=== PATIENT | female | born 1935 | race Caucasian/White ===

== ENCOUNTER 2016-05-30 08:24 | Outpatient (CLI) | payer MEDICARE, BC | END 2016-05-30 08:25 | disposition home or self-care (01) | DX: Z79.899 Other long term (current) drug therapy (principal); E03.9 Hypothyroidism, unspecified ==

== ENCOUNTER 2017-10-24 08:00 | Outpatient (CLI) | payer MEDICARE, BC | END 2017-10-24 08:01 | disposition home or self-care (01) | LOC: LAB.F 08:00 | PROVIDERS: ATTEND Physician Assistant Medical | DX: E03.9 Hypothyroidism, unspecified (principal) | CPT/HCPCS: 36415; 84443 ==

== ENCOUNTER 2018-03-27 09:13 | Outpatient (CLI) | payer MEDICARE, BC ==
[2018-03-27 17:58] LABS: BASOPHILS # (AUTO) 0.1 10^3/uL (0.0-0.1); BASOPHILS % (AUTO) 0.8 %; EOSINOPHILS # (AUTO) 0.2 10^3/uL (0.0-0.7); EOSINOPHILS % (AUTO) 2.6 %; LYMPHOCYTES # (AUTO) 2.2 10^3/uL (1.5-3.5); LYMPHOCYTES % (AUTO) 31.7 %; MEAN CORPUSCULAR HEMOGLOBIN 31.5 pg (27.0-31.0); MEAN CORPUSCULAR HGB CONC 32.4 g/dL (32.0-36.0); MEAN CORPUSCULAR VOLUME 97.2 fL (81.0-99.0); MEAN PLATELET VOLUME 8.4 fL (7.9-10.8); MONOCYTES # (AUTO) 0.5 10^3/uL (0.0-1.0); MONOCYTES % (AUTO) 6.5 %; NEUTROPHILS # (AUTO) 4.1 10^3/uL (1.5-6.6); NEUTROPHILS % (AUTO) 58.4 %; PLT - PLATELET COUNT 345 10^3/uL (130-450); RED BLOOD COUNT 4.44 10^6/uL (4.20-5.40); RED CELL DISTRIBUTION WIDTH 14.5 % (12.0-15.0)
[2018-03-27 18:12] LABS: ALBUMIN 3.8 g/dL (3.2-5.5); ALBUMIN/GLOBULIN RATIO 1.2 (1.0-2.2); BILIRUBIN,TOTAL 0.7 mg/dL (0.2-1.0); CALCIUM 9.4 mg/dL (8.5-10.3); CREATININE 0.5 mg/dL (0.4-1.0); TOTAL PROTEIN 7.1 g/dL (6.7-8.2)
== END 2018-03-27 09:14 | disposition home or self-care (01) ==
LOC: LAB.F 09:13
PROVIDERS: ATTEND Physician Assistant Medical
DX: E03.9 Hypothyroidism, unspecified (principal); Z51.81 Encounter for therapeutic drug level monitoring
CPT/HCPCS: 36415; 80053; 84443; 85025

== ENCOUNTER 2018-08-10 14:35 | Outpatient (CLI) | payer MEDICARE, BC ==
--- NOTE | 2018-08-14 11:05 | DEXA Report ---
Reason: POSTMENOPAUSAL STATUS, SCREENING FOR OSTEOPOROSIS Procedure Date: 08/10/2018 Accession Number: [id number] / [id number] Procedure: DEX - Dexa Spine and/or Hip CPT Code: FULL RESULT: EXAM: Dexa Spine and/or Hip DATE: 08/10/2018 3:23 PM CLINICAL HISTORY: POSTMENOPAUSAL STATUS, SCREENING FOR OSTEOPOROSIS. History of osteopenia and osteoporosis TECHNIQUE: Dual energy x-ray absorptiometry (DXA) was performed on a [employer]. Regions measured are the AP Spine, femoral neck, and if needed forearm. COMPARISON: 08/22/2014 and 01/12/2010 In accordance with the International Society for Clinical Densitometry (ISCD) guidelines, data from previous exams may be reanalyzed using current recommendations and techniques. This is done to allow a more accurate basis for comparison with the current study. FINDINGS: The data for the lumbar spine is as follows: BMD (g/cm/cm) T-SCORE Z-SCORE REGION L1 0.890 -2.0 -0.5 L2 0.964 -2.0 -0.4 L3 0.959 -2.0 -0.5 L4 1.141 -0.5 1.1 TOTAL 0.995 -1.5 0.0 NOTE: All evaluable vertebrae are used for classification The data for the hip is as follows: BMD (g/cm/cm) T-SCORE Z-SCORE REGION Neck 0.612 -3.1 -1.0 TOTAL 0.638 -2.9 -1.0 NOTE: The femoral neck or total proximal femur, whichever is lowest, is used for classification. IMPRESSION: THE WHO CLASSIFICATION BASED ON THE INTERNATIONAL REFERENCE STANDARD IS OSTEOPOROSIS (Reference left femoral neck). THE FRACTURE RISK IS HIGH. RECOMMENDATION: Patients with diagnosis of osteoporosis or osteopenia should have regular bone mineral density assessment. For those eligible for Medicare, routine testing is allowed once every 2 years. Testing frequency can be increased for patients who have rapidly progressing disease or for those who are receiving medical therapy to restore bone mass. COMMENT: World Health Organization (WHO) definitions for osteoporosis and osteopenia: NORMAL BMD: T-score at -1.0 or higher, fracture risk is low OSTEOPENIA BMD: T-score between -1.0 and -2.5, fracture risk is increased. OSTEOPOROSIS BMD: T-score at -2.5 or lower, fracture risk is high. National Osteoporosis Foundation recommends: 1. Obtain adequate dietary calcium (at least 1200 mg per day) and vitamin D (400-800 international units per day). 2. Participate, as appropriate, in regular weightbearing and muscle-strengthening exercise. 3. Avoid tobacco use and reduce alcohol and caffeine intake. 4. For more detailed information see the website at www.NOF.org.
== END 2018-08-10 14:36 | disposition home or self-care (01) ==
LOC: DI 14:35
PROVIDERS: ATTEND Physician Assistant Medical
DX: Z13.820 Encounter for screening for osteoporosis (principal); M81.0 Age-related osteoporosis without current pathological fracture; Z78.0 Asymptomatic menopausal state
CPT/HCPCS: 77080

== ENCOUNTER 2018-08-10 14:37 | Outpatient (CLI) | payer MEDICARE, BC ==
--- NOTE | 2018-08-14 15:04 | Mammography Report ---
Reason: ANNUAL SCREENING Procedure Date: 08/10/2018 Accession Number: [id number] / [id number] Procedure: CYRUS - Screening Mammo Dig Bilat CPT Code: FULL RESULT: EXAM: Screening Mammo Dig Bilat DATE: 08/10/2018 3:30 PM CLINICAL HISTORY: Routine screening TECHNIQUE: (B) - Bilateral CC and MLO views were obtained. COMPARISON: 08/22/2014, 04/27/2011, 04/14/2011 PARENCHYMAL PATTERN: (A) - The breasts demonstrate scattered fibroglandular densities bilaterally. FINDINGS: No significant interval change on the left. There are no suspicious masses, calcifications, or areas of distortion. On the right there are a few new punctate likely benign calcifications in the 8:00 position approximately 4 cm from the nipple. Magnification views are suggested. IMPRESSION: Negative examination. BI-RADS category 1. Left breast. Needs additional evaluation right breast by magnification views. RECOMMENDATION: (ADDMAM) - Recommend additional mammographic views. Right breast BI-RADS CATEGORY: (0) - Incomplete Examination - need additional evaluation. STANDARD QUALIFYING STATEMENTS: 1. This examination was not reviewed with the aid of Computer-Aided Detection (CAD). 2. A negative or benign imaging report should not preclude biopsy if clinically suspicious findings are present. 3. Dense breasts may obscure an underlying neoplasm. 4. This examination was reviewed without the aid of 3D breast imaging (tomosynthesis).
== END 2018-08-10 14:38 | disposition home or self-care (01) ==
LOC: DI 14:37
PROVIDERS: ATTEND Physician Assistant Medical
DX: Z12.31 Encounter for screening mammogram for malignant neoplasm of breast (principal)
CPT/HCPCS: 77067

== ENCOUNTER 2018-08-24 10:33 | Outpatient (CLI) | payer MEDICARE, BC ==
--- NOTE | 2018-08-24 13:02 | Mammography Report ---
Reason: ABNORMAL MAMMOGRAM Procedure Date: 08/24/2018 Accession Number: [id number] / [id number] Procedure: CYRUS - Diag Special Views Dig RT CPT Code: FULL RESULT: EXAM: Diag Special Views Dig RT DATE: 08/24/2018 11:06 AM CLINICAL HISTORY: Diagnostic examination. The patient is recalled for new calcifications in the right breast. TECHNIQUE: (R) - Right right spot magnified CC, right ML and spot magnified ML views are obtained. COMPARISON: 08/10/2018 through 04/14/2011. PARENCHYMAL PATTERN: (A) - The breast(s) demonstrate(s) scattered fibroglandular densities. FINDINGS: The newly discovered right breast calcifications are seen proximally 5 cm from the nipple at the 7:00 position and confirmed. Pattern and morphology are probably benign. There are no suspicious masses, calcifications, or areas of distortion. IMPRESSION: Probably Benign. BI-RADS category 3. RECOMMENDATION: (6MOS) - Recommend 6 month follow-up exam. BI-RADS CATEGORY: (3) - Probably Benign. STANDARD QUALIFYING STATEMENTS: 1. This examination was not reviewed with the aid of Computer-Aided Detection (CAD). 2. A negative or benign imaging report should not preclude biopsy if clinically suspicious findings are present. 3. Dense breasts may obscure an underlying neoplasm. 4. This examination was reviewed without the aid of 3D breast imaging (tomosynthesis).
== END 2018-08-24 10:34 | disposition home or self-care (01) ==
LOC: DI 10:33
PROVIDERS: ATTEND Physician Assistant Medical
DX: R92.1 Mammographic calcification found on diagnostic imaging of breast (principal)

== ENCOUNTER 2018-12-29 12:59 | Outpatient (CLI) | payer MEDICARE, BC ==
--- NOTE | 2018-12-31 16:06 | Ultrasound Report ---
Reason: PAROTID GLAND PAIN, MASS OF PAROTID GLAND Procedure Date: 12/29/2018 Accession Number: [id number] / [id number] Procedure: US - Head or Neck Soft Tissue CPT Code: FULL RESULT: EXAM: NECK ULTRASOUND EXAM DATE: 12/29/2018 01:15 PM. CLINICAL HISTORY: PAROTID GLAND PAIN, MASS OF PAROTID GLAND. COMPARISON: None. TECHNIQUE: Real time sonographic imaging of the parotid glands was performed by the hose seamer. Multiple airline security representative static images were saved for review. FINDINGS: Targeted sonographic evaluation was performed of bilateral parotid glands. On the right, there is mild dilation of Stensen duct to a caliber of 1.5 mm. There appear to be small calcifications within the ducts, measuring 1 mm. On the left, there is more pronounced dilation of Stensen duct to a caliber of 3 mm. A 3 mm obstructing calculus is present. There also appears to be hypoechoic, lobulated debris in the upstream duct. There are bilateral submandibular lymph nodes. Largest is on the right and measures 1.3 x 0.6 x 0.6 cm. IMPRESSION: Bilateral parotid sialolithiasis, resulting in dilation of Stensen duct. This is greater on the left than on the right. Given the patient's symptoms, superimposed sialadenitis cannot be excluded. RADIA
== END 2018-12-29 13:00 | disposition home or self-care (01) ==
LOC: DI 12:59
PROVIDERS: ATTEND Physician Assistant Medical
DX: K11.5 Sialolithiasis (principal)
CPT/HCPCS: 76536

== ENCOUNTER 2019-03-22 09:11 | Outpatient (CLI) | payer MEDICARE, BC ==
[2019-03-22 17:14] LABS: BASOPHILS # (AUTO) 0.1 10^3/uL (0.0-0.1); BASOPHILS % (AUTO) 0.7 %; EOSINOPHILS # (AUTO) 0.1 10^3/uL (0.0-0.7); EOSINOPHILS % (AUTO) 1.5 %; HGB - HEMOGLOBIN 12.9 g/dL (12.0-16.0); LYMPHOCYTES # (AUTO) 2.2 10^3/uL (1.5-3.5); LYMPHOCYTES % (AUTO) 30.6 %; MEAN CORPUSCULAR HEMOGLOBIN 30.8 pg (27.0-31.0); MEAN CORPUSCULAR HGB CONC 31.2 g/dL (32.0-36.0); MEAN CORPUSCULAR VOLUME 98.8 fL (81.0-99.0); MEAN PLATELET VOLUME 10.7 fL (7.9-10.8); MONOCYTES # (AUTO) 0.6 10^3/uL (0.0-1.0); NEUTROPHILS # (AUTO) 4.1 10^3/uL (1.5-6.6); NEUTROPHILS % (AUTO) 57.9 %; PLT - PLATELET COUNT 308 10^3/uL (130-450); RED BLOOD COUNT 4.19 10^6/uL (4.20-5.40); RED CELL DISTRIBUTION WIDTH 13.7 % (12.0-15.0); WHITE BLOOD COUNT 7.1 x10^3/uL (4.8-10.8)
[2019-03-22 18:12] LABS: ALBUMIN 3.9 g/dL (3.2-5.5); ALBUMIN/GLOBULIN RATIO 1.3 (1.0-2.2); BILIRUBIN,TOTAL 0.8 mg/dL (0.2-1.0); CALCIUM 9.2 mg/dL (8.5-10.3); CREATININE 0.8 mg/dL (0.4-1.0)
[2019-03-22 18:52] LABS: FREE T4 (FREE THYROXINE) 1.94 ng/dL (0.58-1.64)
== END 2019-03-22 09:12 | disposition home or self-care (01) ==
LOC: LAB.S 09:11
PROVIDERS: ATTEND Physician Assistant Medical
DX: Z51.81 Encounter for therapeutic drug level monitoring (principal); Z79.899 Other long term (current) drug therapy; E03.9 Hypothyroidism, unspecified
CPT/HCPCS: 36415; 80053; 84439; 84443; 85025

== ENCOUNTER 2019-04-05 13:44 | Outpatient (CLI) | payer MEDICARE, BC ==
--- NOTE | 2019-04-05 16:52 | Mammography Report ---
Reason: 6 MONTH F U - DIAG MAMMO Procedure Date: 04/05/2019 Accession Number: [id number] / [id number] Procedure: CYRUS - Diagnostic Dig RT CPT Code: Final Report FULL RESULT: EXAM: Diagnostic Dig RT DATE: 04/05/2019 3:07 PM CLINICAL HISTORY: Diagnostic examination. Follow-up of right breast calcifications. TECHNIQUE: (R) - Right spot magnified CC, MLO, ML spot magnified ML images are obtained COMPARISON: 08/24/2018 through 04/14/2011. PARENCHYMAL PATTERN: (A) - The breast(s) demonstrate(s) scattered fibroglandular densities. FINDINGS: Grouping of calcifications in the lower central right breast 5 cm from the nipple, 6:00 position, appear probably benign and demonstrate no significant interval change. There are no suspicious masses, calcifications, or areas of distortion. IMPRESSION: Probably Benign. BI-RADS category 3. RECOMMENDATION: (6MOS) - Recommend 6 month follow-up exam. At the time of left breast screening mammography. BI-RADS CATEGORY: (3) - Probably Benign. STANDARD QUALIFYING STATEMENTS: 1. This examination was not reviewed with the aid of Computer-Aided Detection (CAD). 2. A negative or benign imaging report should not preclude biopsy if clinically suspicious findings are present. 3. Dense breasts may obscure an underlying neoplasm. 4. This examination was reviewed without the aid of 3D breast imaging (tomosynthesis).
== END 2019-04-05 13:45 | disposition home or self-care (01) ==
LOC: DI 13:44
PROVIDERS: ATTEND Physician Assistant Medical
DX: R92.1 Mammographic calcification found on diagnostic imaging of breast (principal)

== ENCOUNTER 2019-05-29 06:58 | Outpatient (CLI) | payer MEDICARE, BC | END 2019-05-29 06:59 | disposition home or self-care (01) | LOC: LAB.S 06:58 | PROVIDERS: ATTEND Physician Assistant Medical | DX: E03.9 Hypothyroidism, unspecified (principal) | CPT/HCPCS: 36415; 84443 ==

== ENCOUNTER 2019-11-22 10:46 | Outpatient (CLI) | payer MEDICARE, BC ==
--- NOTE | 2019-11-26 09:41 | Mammography Report ---
BILATERAL DIGITAL DIAGNOSTIC MAMMOGRAM: 11/22/2019 CLINICAL: Patient returns for 6 month follow up on right breast for calcifications. Comparison is made to exams dated: 04/05/2019 mammogram, 08/24/2018 mammogram, 08/10/2018 mammogram, 08/22 mammogram, 04/27/2011 mammogram, and 04/14/2011 mammogram - [facility]. There a re scattered fibroglandular elements in both breasts. There are benign grouped punctate calcifications in the right breast at 6 o'clock middle depth. Thes e are not significantly changed compared to prior studies. No other significant masses, calcifications, or other findings are seen in either breast. IMPRESSION: BENIGN There is no mammographic evidence of malignancy. A 1 year screening mammogram is recommended. This exam was interpreted at Station ID: [id number]. NOTE: For mammograms, a report in lay terms will be sent to the patient. Approximately 15% of breast malignancies will not be visualized mammographically. In the management of a palpable breast mass, a negative mammogram must not discourage biopsy of a clinically suspicious lesion. Electronically Signed By: Cirilo Panda M.D. ddp/:11/22/2019 14:08:36 ACR BI-RADS Category 2: Benign Finding(s) 3342F PARENCHYMAL PATTERN: (A) - The breast(s) demonstrate(s) scattered fibroglandular densities. BI-RADS CATEGORY: (2) - 2 RECOMMENDATION: (ANNUAL) - Recommend routine annual screening mammography. [id number] 1 year screening LATERALITY: (B)
== END 2019-11-22 10:47 | disposition home or self-care (01) ==
LOC: DI 10:46
PROVIDERS: ATTEND Registered Nurse
DX: R92.2 Inconclusive mammogram (principal)
CPT/HCPCS: 77066

== ENCOUNTER 2019-11-28 13:14 | Outpatient (CLI) | payer MEDICARE, BC | END 2019-11-28 13:15 | disposition home or self-care (01) | LOC: COV 13:14 | PROVIDERS: ATTEND Surgery | DX: Z01.818 Encounter for other preprocedural examination (principal); K43.2 Incisional hernia without obstruction or gangrene; Z20.828 Contact with and (suspected) exposure to other viral communicable diseases ==

== ENCOUNTER 2019-12-02 07:29 | Day surgery (SDC) | payer MEDICARE, BC ==
[~2019-12-02 07:29] MED LIST: CEFAZOLIN SODIUM IN 0.9 % NACL 2 GM/100 ML BAG IV ONE
[2019-12-02] MEDS ORDERED: LACTATED RINGERS 1,000 ML IV ONE ×2 (07:32→10:56)
--- NOTE | 2019-12-02 08:15 | ANESTHESIA ---
Pre-Anesthesia VS, & Labs - Diagnosis incisional hernia - Procedure incisional hermia repair Vital Signs: Temp Pulse Resp BP Pulse Ox 36.5 C 65 12 120/64 100 12/02/19 07:32 12/02/19 07:32 12/02/19 07:32 12/02/19 07:32 12/02/19 07:32 Height 5 ft 11 in Weight (kg) 70.3 kg - NPO >8 hours - Is Patient ?: No Home Medications and Allergies Home Medications: Ambulatory Orders Aspirin [Aspirin EC] 81 mg PO DAILY 11/26/19 Cholecalciferol (Vitamin D3) [Vitamin D3] 10 mcg PO ONCE 11/26/19 Cyanocobalamin (Vitamin B-12) [Vitamin B-12] 1,000 mcg PO DAILY 11/26/19 Glucosam/Chond-Msm1/C/Mohsen/Bor [Ohouwod-Npfcn-YIU Complex Cplt] 1 each PO DAILY 11/26/19 Levothyroxine Sodium 175 mcg PO DAILY 11/26/19 Multivitamin 1 each PO DAILY 11/26/19 Benavides-3 Fatty Acids/Fish Oil [Benavides-3 Fish Oil 1,000 mg Sfgl] 1 each PO DAILY 11/26/19 Psyllium Husk [Metamucil] 1 each PO DAILY 11/26/19 Vitamin B Complex 1 each PO DAILY 11/26/19 diazePAM [Diazepam] 10 mg PO ONCE PRN 11/26/19 Aspirin [Aspirin EC] 81 mg PO DAILY 11/26/19 Cholecalciferol (Vitamin D3) [Vitamin D3] 10 mcg PO ONCE 11/26/19 Cyanocobalamin (Vitamin B-12) [Vitamin B-12] 1,000 mcg PO DAILY 11/26/19 Glucosam/Chond-Msm1/C/Mohsen/Bor [Zocafpf-Tcigg-CQH Complex Cplt] 1 each PO DAILY 11/26/19 Levothyroxine Sodium 175 mcg PO DAILY 11/26/19 Multivitamin 1 each PO DAILY 11/26/19 Benavides-3 Fatty Acids/Fish Oil [Benavides-3 Fish Oil 1,000 mg Sfgl] 1 each PO DAILY 11/26/19 Psyllium Husk [Metamucil] 1 each PO DAILY 11/26/19 Vitamin B Complex 1 each PO DAILY 11/26/19 diazePAM [Diazepam] 10 mg PO ONCE PRN 11/26/19 Allergies/Adverse Reactions: Allergies Allergy/AdvReac Type Severity Reaction Status Date / Time naproxen Allergy Severe Anaphylaxis Verified 12/02/19 08:02 NSAIDS (Non-Steroidal Allergy Unknown Unknown Verified 12/02/19 08:05 Anti-Inflamma morphine Allergy Hallucinati Verified 12/02/19 08:05 ons Anes History & Medical History - Anesthetic History Anesthesia Complications: reports: No previous complications - Medical History Cardiovascular: reports: Murmur (history of rhymatic fever) Pulmonary: reports: None Gastrointestinal: reports: GERD, Colon polyps, Chronic constipation, Other Urinary: reports: Incontinence, Other Musculoskeletal: reports: Osteoarthritis Endocrine/Autoimmune: reports: HyPOthyroidism Skin: reports: Eczema - Surgical History General: Cholecystectomy, Colonoscopy Eyes Ears Nose Throat (EENT): Cataracts, Tonsil/Adenoidectomy Gynecologic: Other Exam General: Alert Dental: WNL Mallampati classification: II Thyromental Distance: greater than 6 cm Respiratory: Lungs clear Plan Anesthesia Type: General Consent for Procedure(s) Verified and Reviewed: Yes Code Status: Attempt Resuscitation ASA classification: 2-Mild systemic disease Is this case an emergency?: No
[2019-12-02] MEDS ORDERED: LIDOCAINE 1%-EPI 1:100000 20 ML MDV ONE (09:26)
[2019-12-02] MEDS ORDERED: ceFAZolin 1 GM VIAL ONE (09:26)
[2019-12-02] MEDS ORDERED: BUPIVACAINE 0.5% PF 30 ML VIAL ONE (09:26)
[2019-12-02] MEDS ORDERED: SODIUM CHLORIDE 0.9% 10 ML ONE (09:28)
[2019-12-02] MEDS ORDERED: BUPIVACAINE 0.5% PF 30 ML VIAL SUBQ ONE ×2 (10:02)
[2019-12-02] MEDS ORDERED: LIDOCAINE 1%-EPI 1:100000 20 ML MDV SUBQ ONE ×3 (10:03)
[2019-12-02] MEDS ORDERED: ceFAZolin 1 GM VIAL IR ONE (10:03)
--- NOTE | 2019-12-02 10:53 | OPERATIVE REPORT ---
Operative Report - General Procedure Date: 12/02/19 Planned Procedure: Incisional hernia repair Pre-Op Diagnosis: Incisional hernia with intermittent obstruction Procedure Performed: Incisional hernia repair Post Op Diagnosis: Recurrent incisional hernia with pre-existing mesh - Procedure Note Primary Surgeon: Britt Anesthesia Provider: ARTI Sullivan Anesthesia Technique: General LMA, Local Pathology: None Estimated Blood Loss (mL): 5 Findings: 2 cm defect toward the midline from the existing right lateral repair. Mesh in place existing sutures torn through the fascia at the level of the umbilicus Complications: None apparent - Other Other Information/Narrative: After obtaining informed consent, the patient is brought to the operating room and placed in the supine position on the operating table. Following successful induction of general anesthesia, appropriate padding of all bony prominences, and placement of appropriate monitors, the abdomen is prepped and draped in the standard surgical fashion. A timeout was held per scope protocol. All elements of the surgical safety checklist were followed before, during, and after the procedure. We began the procedure by infiltrating a mixture of local anesthetics into the existing incision at the level of the umbilicus into the right lateral side. This incision was reopened creating an approximately 6 cm opening into the abdominal cavity. This was carried through the skin and subcutaneous tissue revealing a hernia sac below. Additional local anesthetic was infiltrated into the surrounding fascia and muscle. The hernia sac was carefully dissected free from surrounding structures. Once the edges of the fascial opening were defined, we were able to determine that there was existing mesh that had been placed with Ethibond sutures. The Ethibond sutures had apparently torn through the fascia at the level of the umbilicus. The defect itself was approximately 2 x 2 cm and fairly circular. Using sharp dissection, the edges of the fascia were carefully defined and to the hernia sac itself was liberated from the overlying skin and underlying fascia. It was reduced back into the abdominal cavity leaving the peritoneum intact. There was significant intra-abdominal adhesive disease that has been functioning well for the patient and without pain. For this reason I elected to leave all of that in place. The wound was irrigated with warm saline solution containing Ancef and checked for hemostasis.I elected to repair the recurrence directly using #1 interrupted Prolene sutures.I then provided an onlay patch of woven Prolene that was 4 x 7 cm in greatest dimension. This was sewn to the fascial incision and the overlying fascia.The wound was then checked once again for hemostasis. The umbilicus was reconstructed using 3-0 Vicryl suture. The defect was then closed in 2 layers and Dermabond was applied to the skin. All sponge, needle, and instrument counts were correct at the conclusion of the case. The patient was allowed to wake from anesthesia without difficulty and taken to the postanesthesia care unit in good condition.
[2019-12-02] MEDS ORDERED: ACETAMINOPHEN 325 MG TABLET PO PRN (10:58)
[2019-12-02] MEDS ORDERED: ONDANSETRON 4 MG/2 ML VIAL IVP PRN (10:58)
--- NOTE | 2019-12-02 11:23 | ANESTHESIA POST OP EVALUATION ---
Anesthesia Post Eval - Post Anesthesia Eval Vitals: Last Vital Signs Temp 36.4 C L 12/02/19 11:15 Pulse 62 12/02/19 11:15 Resp 12 12/02/19 11:15 BP 117/63 12/02/19 11:15 Pulse Ox 100 12/02/19 11:15 CV Function Including HR & BP: positive: Stable Pain Control: positive: Satisfactory Nausea & Vomiting: positive: Negative Mental Status: positive: Baseline Respiratory Status: Airway Patent Hydration Status: Satisfactory Anesthesia Complications: positive: None
[2019-12-02 11:39] VITALS: BP 123/79
== END 2019-12-02 07:30 | disposition home or self-care (01) ==
LOC: SDS 07:29
PROVIDERS: ATTEND Surgery
DX: K43.0 Incisional hernia with obstruction, without gangrene (principal); R01.1 Cardiac murmur, unspecified
CPT/HCPCS: 49560; 49568; C1781; J0690; J7120

== ENCOUNTER 2020-09-29 08:00 | Outpatient (CLI) | payer MEDICARE, BC | END 2020-09-29 23:59 | disposition home or self-care (01) | LOC: LAB.F 08:00 | PROVIDERS: ATTEND Registered Nurse | DX: N39.3 Stress incontinence (female) (male) (principal) | CPT/HCPCS: 81002 ==

== ENCOUNTER 2020-11-10 07:04 | Outpatient (CLI) | payer MEDICARE, BC ==
[2020-11-10 14:43] LABS: BASOPHILS % (AUTO) 0.5 %; EOSINOPHILS # (AUTO) 0.3 10^3/uL (0.0-0.7); EOSINOPHILS % (AUTO) 3.9 %; HCT - HEMATOCRIT 38.6 % (37.0-47.0); HGB - HEMOGLOBIN 11.9 g/dL (12.0-16.0); LYMPHOCYTES # (AUTO) 2.6 10^3/uL (1.5-3.5); LYMPHOCYTES % (AUTO) 33.5 %; MEAN CORPUSCULAR HEMOGLOBIN 30.8 pg (27.0-31.0); MEAN CORPUSCULAR HGB CONC 30.8 g/dL (32.0-36.0); MONOCYTES # (AUTO) 0.7 10^3/uL (0.0-1.0); MONOCYTES % (AUTO) 8.5 %; NEUTROPHILS # (AUTO) 4.1 10^3/uL (1.5-6.6); NEUTROPHILS % (AUTO) 53.3 %; PLT - PLATELET COUNT 301 10^3/uL (130-450); RED BLOOD COUNT 3.86 10^6/uL (4.20-5.40); RED CELL DISTRIBUTION WIDTH 14.7 % (12.0-15.0); WHITE BLOOD COUNT 7.7 x10^3/uL (4.8-10.8)
[2020-11-10 16:09] LABS: ALBUMIN 3.9 g/dL (3.2-5.5); ALBUMIN/GLOBULIN RATIO 1.2 (1.0-2.2); ALKALINE PHOSPHATASE 57 IU/L (42-121); ALT ALANINE AMINOTRANSFERASE 18 IU/L (10-60); AST ASPARTATE AMINOTRANSFERASE 22 IU/L (10-42); BILIRUBIN,TOTAL 0.7 mg/dL (0.2-1.0); BUN - BLOOD UREA NITROGEN 12 mg/dL (6-20); CHOL/HDL RATIO 2.4 (<4.4); CHOLESTEROL 143 mg/dL; CREATININE 0.6 mg/dL (0.4-1.0); GFR - MDRD 95 (>89); HDL CHOLESTEROL 60 mg/dL; LDL CHOLESTEROL,CALCULATED 71 mg/dL; LDL/HDL RATIO 1.2 (<4.4); TOTAL PROTEIN 7.2 g/dL (6.7-8.2); TRIGLYCERIDES 62 mg/dL; VLDL CHOLESTEROL 12 mg/dL
[2020-11-10 16:19] LABS: THYROID STIMULATING HORMONE 0.07 uIU/mL (0.34-5.60)
[2020-11-10 16:28] LABS: CALCIUM 9.5 mg/dL (8.5-10.3); CARBON DIOXIDE - CO2 29 mmol/L (21-32); CHLORIDE 104 mmol/L (101-111); GLUCOSE 97 mg/dL (70-100); POTASSIUM 4.1 mmol/L (3.5-5.0); SODIUM 140 mmol/L (135-145)
[2020-11-10 16:59] LABS: FREE T4 (FREE THYROXINE) 1.99 ng/dL (0.58-1.64)
== END 2020-11-10 07:05 | disposition home or self-care (01) ==
LOC: LAB.S 07:04
PROVIDERS: ATTEND Registered Nurse
DX: E03.9 Hypothyroidism, unspecified (principal); Z79.899 Other long term (current) drug therapy; Z13.220 Encounter for screening for lipoid disorders; Z13.0 Encounter for screening for diseases of the blood and blood-forming organs and certain disorders involving the immune mechanism
CPT/HCPCS: 36415; 80053; 80061; 83721; 84439; 84443; 85025

== ENCOUNTER 2020-12-09 08:11 | Day surgery (SDC) | payer MEDICARE, BC ==
[2020-12-09] MEDS ORDERED: LACTATED RINGERS 1,000 ML IV ONE ×2 (08:14→10:48)
[2020-12-09] MEDS ORDERED: PROPOFOL 500 MG/50 ML 500 MG/50 ML VIAL ONE (08:49)
[2020-12-09] MEDS ORDERED: fentaNYL 100 MCG/2 ML VIAL ONE (08:51)
[2020-12-09] MEDS ORDERED: BUPIVACAINE 0.25% PF 30 ML VIAL ONE (09:07)
[2020-12-09] MEDS ORDERED: LIDOCAINE 1% 50 ML MDV ONE (09:07)
--- NOTE | 2020-12-09 09:21 | ANESTHESIA ---
Pre-Anesthesia VS, & Labs - Diagnosis abdominal hernia - Procedure open abdominal hernia repair Vital Signs: Temp Pulse Resp BP Pulse Ox 36.5 C 80 18 117/77 98 12/09/20 08:24 12/09/20 08:24 12/09/20 08:24 12/09/20 08:24 12/09/20 08:24 Height: 5 ft 10 in Weight (kg): 61 kg Body Mass Index: 19.3 BMI Classification: Healthy weight - NPO >8 hours - Is Patient ?: No Home Medications and Allergies Home Medications: Ambulatory Orders Zinc Gluconate [Zinc] 50 mg PO DAILY 12/08/20 Aspirin [Aspirin EC] 81 mg PO DAILY 11/26/19 Cholecalciferol (Vitamin D3) [Vitamin D3] 10 mcg PO ONCE 11/26/19 Cyanocobalamin (Vitamin B-12) [Vitamin B-12] 1,000 mcg PO DAILY 11/26/19 Glucosam/Chond-Msm1/C/Mohsen/Bor [Fzgyzxy-Lyrkn-JXO Complex Cplt] 1 each PO DAILY 11/26/19 Levothyroxine Sodium 175 mcg PO DAILY 11/26/19 Multivitamin 1 each PO DAILY 11/26/19 Chandler-3 Fatty Acids/Fish Oil [Chandler-3 Fish Oil 1,000 mg Sfgl] 1 each PO DAILY 11/26/19 Psyllium Husk [Metamucil] 1 each PO DAILY 11/26/19 Vitamin B Complex 1 each PO DAILY 11/26/19 diazePAM [Diazepam] 10 mg PO ONCE PRN 11/26/19 Zinc Gluconate [Zinc] 50 mg PO DAILY 12/08/20 Allergies/Adverse Reactions: Allergies Allergy/AdvReac Type Severity Reaction Status Date / Time naproxen Allergy Severe Anaphylaxis Verified 12/02/19 08:02 NSAIDS (Non-Steroidal Allergy Unknown Unknown Verified 12/02/19 08:05 Anti-Inflamma morphine Allergy Hallucinati Verified 12/02/19 08:05 ons tramadol Allergy Unknown Verified 12/08/20 14:17 Anes History & Medical History - Anesthetic History Anesthesia Complications: reports: No previous complications Family history of Anesthesia Complications: Denies Family history of Malignant Hyperthermia: Denies - Medical History Cardiovascular: reports: None, Other Pulmonary: reports: None Gastrointestinal: reports: Other Urinary: reports: Incontinence, Other Musculoskeletal: reports: Osteoarthritis, Other Endocrine/Autoimmune: reports: HyPOthyroidism Skin: reports: Eczema, Psoriasis - Surgical History General: reports: Cholecystectomy, Appendectomy Eyes Ears Nose Throat (EENT): reports: Cataracts, Tonsil/Adenoidectomy, Other Gynecologic: reports: Other Exam General: Alert, Oriented x3, Cooperative Dental: WNL Mouth Openin Fingerbreadth Neck Mobility: Reduced Mallampati classification: III Thyromental Distance: less than 4 cm Respiratory: Lungs clear Cardiovascular: Regular rate Plan Anesthesia Type: Total IV Regional Block: Per Surgeon's request for Post Op pain control Consent for Procedure(s) Verified and Reviewed: Yes Code Status: Attempt Resuscitation ASA classification: 3-Severe systemic disease Is this case an emergency?: No
[2020-12-09] MEDS ORDERED: MIDAZOLAM 2 MG/2 ML VIAL ONE (09:31)
[2020-12-09] MEDS ORDERED: LIDOCAINE 1% 50 ML MDV SUBQ ONE ×2 (09:57)
[2020-12-09] MEDS ORDERED: BUPIVACAINE 0.25% PF 30 ML VIAL SUBQ ONE ×2 (09:59)
[2020-12-09] MEDS ORDERED: ONDANSETRON 4 MG/2 ML VIAL IVP PRN (11:02)
[2020-12-09] MEDS ORDERED: HYDROmorphone 0.5 MG/0.5 ML SYRINGE IVP PRN (11:02)
--- NOTE | 2020-12-09 11:16 | OPERATIVE REPORT ---
Operative Report - General Procedure Date: 12/09/20 Planned Procedure: open left lower quadrant ventral hernia repair Pre-Op Diagnosis: left lower quadrant ventral hernia Procedure Performed: open repair left lower quadrant ventral hernia with mesh Post Op Diagnosis: left lower quadrant ventral hernia - Procedure Note Primary Surgeon: ivon rascon md Anesthesia Technique: Local, MAC Pathology: none Estimated Blood Loss (mL): 1 Drain/Tube Type: Other (none) Indications: painful bulge with colon Complications: none - Other Other Information/Narrative: The patient was properly identified brought to the operating room and placed in supine position. The left lower quadrant hernia site was very carefully marked. Monitored anesthesia care was given. He was prepped and draped in a sterile fashion and given preoperative antibiotics. Local anesthetic was given throughout the procedure. A 4 cm incision was made in the direction of Shyla's lines over the marked hernia site. Dissection proceeded with cutting current. Additional local anesthetic was given. There was slight attenuation of the external oblique fibers. The external oblique was opened in the direction of its fibers. As anticipated no obvious hernia defect. The external Bleich musculature was bluntly dissection proceeded down to the transversalis. There was bulging of this area. A 5 cm by approximately 4 cm plane was created under the musculature and above the transversalis. The transversalis was imbricated with interrupted 0 Ethibond. Approximately 1.5 x 2.5 inch polypropylene mesh was then placed and secured with multiple interrupted 0 Ethibond sutures. Musculature was then closed over the mesh with additional interrupted 0 Ethibond. Fascia was closed with a running 0 Ethibond. Subcutaneous tissue was reapproximated with interrupted 3-0 Vicryl. Skin was closed with a running 4-0 Monocryl subcuticular suture. Dressing was applied. He tolerated the procedure well and was brought to recovery in good condition.
[2020-12-09 11:45] VITALS: BP 130/72
[2020-12-09] MEDS ORDERED: LACTATED RINGERS 1,000 ML IV SCH (12:00)
--- NOTE | 2020-12-09 16:44 | ANESTHESIA POST OP EVALUATION ---
Anesthesia Post Eval - Post Anesthesia Eval Vitals: Last Vital Signs Temp 36.6 C 12/09/20 11:20 Pulse 67 12/09/20 11:20 Resp 14 12/09/20 11:20 BP 130/72 12/09/20 11:20 Pulse Ox 98 12/09/20 11:20 CV Function Including HR & BP: Stable Pain Control: Satisfactory Nausea & Vomiting: Negative Mental Status: Baseline Respiratory Status: Airway Patent Hydration Status: Satisfactory Anesthesia Complications: None
== END 2020-12-09 08:12 | disposition home or self-care (01) ==
LOC: SDS 08:11
PROVIDERS: ATTEND Surgery
DX: K43.9 Ventral hernia without obstruction or gangrene (principal)
CPT/HCPCS: 49560; 49568; C1781; J0690; J7120

== ENCOUNTER 2021-12-14 07:33 | Outpatient (CLI) | payer MEDICARE, BC ==
[2021-12-14 15:04] LABS: BASOPHILS # (AUTO) 0.1 10^3/uL (0.0-0.1); BASOPHILS % (AUTO) 0.9 %; EOSINOPHILS # (AUTO) 0.2 10^3/uL (0.0-0.7); EOSINOPHILS % (AUTO) 3.4 %; HCT - HEMATOCRIT 40.9 % (37.0-47.0); LYMPHOCYTES % (AUTO) 31.4 %; MEAN CORPUSCULAR HEMOGLOBIN 31.4 pg (27.0-31.0); MEAN CORPUSCULAR HGB CONC 31.8 g/dL (32.0-36.0); MEAN CORPUSCULAR VOLUME 98.8 fL (81.0-99.0); MEAN PLATELET VOLUME 9.8 fL (7.9-10.8); MONOCYTES # (AUTO) 0.6 10^3/uL (0.0-1.0); NEUTROPHILS # (AUTO) 3.5 10^3/uL (1.5-6.6); PLT - PLATELET COUNT 387 10^3/uL (130-450); RED BLOOD COUNT 4.14 10^6/uL (4.20-5.40); RED CELL DISTRIBUTION WIDTH 13.7 % (12.0-15.0); WHITE BLOOD COUNT 6.4 x10^3/uL (4.8-10.8)
[2021-12-14 15:39] LABS: THYROID STIMULATING HORMONE 0.92 uIU/mL (0.34-5.60)
[2021-12-14 15:50] LABS: ALBUMIN 3.5 g/dL (3.2-5.5); ALKALINE PHOSPHATASE 74 IU/L (42-121); ALT ALANINE AMINOTRANSFERASE 12 IU/L (10-60); AST ASPARTATE AMINOTRANSFERASE 18 IU/L (10-42); BILIRUBIN,TOTAL 0.7 mg/dL (0.2-1.0); BUN - BLOOD UREA NITROGEN 11 mg/dL (6-20); CALCIUM 9.6 mg/dL (8.5-10.3); CARBON DIOXIDE - CO2 30 mmol/L (21-32); CHLORIDE 105 mmol/L (101-111); CHOL/HDL RATIO 2.5 (<4.4); CHOLESTEROL 156 mg/dL; CREATININE 0.7 mg/dL (0.4-1.0); GFR - MDRD 79 (>89); GLUCOSE 100 mg/dL (70-100); HDL CHOLESTEROL 62 mg/dL; LDL CHOLESTEROL,CALCULATED 80 mg/dL; LDL/HDL RATIO 1.3 (<4.4); POTASSIUM 4.1 mmol/L (3.5-5.0); SODIUM 143 mmol/L (135-145); TOTAL PROTEIN 6.9 g/dL (6.7-8.2); TRIGLYCERIDES 70 mg/dL; VLDL CHOLESTEROL 14 mg/dL
== END 2021-12-14 07:34 | disposition home or self-care (01) ==
LOC: LAB.S 07:33
PROVIDERS: ATTEND Registered Nurse
DX: E03.9 Hypothyroidism, unspecified (principal); Z79.899 Other long term (current) drug therapy; Z13.0 Encounter for screening for diseases of the blood and blood-forming organs and certain disorders involving the immune mechanism; Z13.228 Encounter for screening for other metabolic disorders; Z13.220 Encounter for screening for lipoid disorders
CPT/HCPCS: 36415; 80053; 80061; 83721; 84443; 85025

== ENCOUNTER 2022-03-28 10:38 | Outpatient (CLI) | payer MEDICARE, BC | END 2022-03-28 10:39 | disposition EMS.NT | LOC: EMS 10:38 | DX: Z03.89 Encounter for observation for other suspected diseases and conditions ruled out (principal) ==

== ENCOUNTER 2022-12-20 07:53 | Outpatient (CLI) | payer MEDICARE, BC ==
[2022-12-20 15:34] LABS: BASOPHILS % (AUTO) 0.5 %; EOSINOPHILS # (AUTO) 0.2 10^3/uL (0.0-0.7); EOSINOPHILS % (AUTO) 2.7 %; HCT - HEMATOCRIT 40.3 % (37.0-47.0); HGB - HEMOGLOBIN 12.2 g/dL (12.0-16.0); LYMPHOCYTES # (AUTO) 2.1 10^3/uL (1.5-3.5); LYMPHOCYTES % (AUTO) 25.7 %; MEAN CORPUSCULAR HEMOGLOBIN 30.3 pg (27.0-31.0); MEAN CORPUSCULAR HGB CONC 30.3 g/dL (32.0-36.0); MEAN PLATELET VOLUME 10.1 fL (7.9-10.8); MONOCYTES # (AUTO) 0.8 10^3/uL (0.0-1.0); MONOCYTES % (AUTO) 9.5 %; NEUTROPHILS % (AUTO) 61.4 %; PLT - PLATELET COUNT 444 10^3/uL (130-450); RED BLOOD COUNT 4.03 10^6/uL (4.20-5.40); RED CELL DISTRIBUTION WIDTH 14.5 % (12.0-15.0); WHITE BLOOD COUNT 8.1 x10^3/uL (4.8-10.8)
[2022-12-20 15:59] LABS: ALBUMIN 3.8 g/dL (3.2-5.5); ALBUMIN/GLOBULIN RATIO 1.2 (1.0-2.2); BILIRUBIN,TOTAL 0.6 mg/dL (0.2-1.0); CALCIUM 9.4 mg/dL (8.5-10.3); CREATININE 0.6 mg/dL (0.6-1.3); POTASSIUM 3.9 mmol/L (3.5-4.5); THYROID STIMULATING HORMONE 1.98 uIU/mL (0.34-5.60)
== END 2022-12-20 07:54 | disposition home or self-care (01) ==
LOC: LAB.S 07:53
PROVIDERS: ATTEND Registered Nurse
DX: E03.9 Hypothyroidism, unspecified (principal); Z79.899 Other long term (current) drug therapy
CPT/HCPCS: 36415; 80053; 84443; 85025